=== PATIENT | female | born 1980 | race Caucasian/White ===

== ENCOUNTER 2024-02-27 05:35 | Emergency (ER) | payer OTHER ==
[2024-02-27 05:50] VITALS: BP 117/79; PULSE 86; RESP 20; TEMP 98.7; BMI 30.9
[2024-02-27] MEDS ORDERED: ACETAMINOPHEN 325 MG TABLET (FP) ONE (08:08)
[2024-02-27] MEDS ORDERED: MECLIZINE HCL 25 MG TABLET (FP) ONE (08:08)
[2024-02-27] MEDS ORDERED: METOCLOPRAMIDE HCL INJECTION 10 MG/2 ML VIAL ONE (08:08)
[2024-02-27] MEDS: MECLIZINE HCL 25 MG TABLET (FP) PO ONE (08:22)
[2024-02-27] MEDS: METOCLOPRAMIDE HCL INJECTION 10 MG/2 ML VIAL IVPUSH ONE (08:22)
[2024-02-27] MEDS: SODIUM CHLORIDE 0.9% 500 ML INFUS.BAG IV ONE (08:22)
[2024-02-27] MEDS: ACETAMINOPHEN 325 MG TABLET (FP) PO ONE (08:22)
[2024-02-27 08:35] LABS: BASO % 0.6 % (0-2.0); EOS % 2.1 % (0-4.5); HEMATOCRIT 40.7 % (32.4-45.2); HEMOGLOBIN 13.7 GM/dL (10.7-15.3); LYMPH % 26.8 % (8-40); MCH 29.7 pg (25.7-33.7); MCHC 33.8 g/dl (32.0-36.0); MEAN PLT VOLUME 9.8 fl (7.5-11.1); MONO % 6.8 % (3.8-10.2); NEUT % 63.7 % (42.8-82.8); PLATELET COUNT 216 10^3/uL (134-434); RBC 4.62 M/mm3 (3.60-5.2); RDW 12.9 % (11.6-15.6); WHITE BLOOD COUNT 7.5 K/mm3 (4.0-10.0)
[2024-02-27 08:58] LABS: POTASSIUM 4.4 mmol/L (3.5-5.1)
[2024-02-27 08:59] LABS: CALCIUM 8.9 mg/dL (8.5-10.1)
[2024-02-27 09:00] LABS: ALBUMIN 3.7 g/dl (3.4-5.0); BLOOD UREA NITROGEN 16.1 mg/dL (7-18); MAGNESIUM 2.2 mg/dL (1.8-2.4)
[2024-02-27 09:03] LABS: CREATININE 0.7 mg/dL (0.55-1.3)
[2024-02-27 09:05] LABS: BILIRUBIN,TOTAL 0.2 mg/dL (0.2-1); TOT PROT 7.3 g/dl (6.4-8.2)
== END 2024-02-27 10:28 | disposition home or self-care (01) ==
LOC: JER 05:35
PROC: 3E030GC Introduction of Other Therapeutic Substance into Peripheral Vein, Open Approach (ICD-10-PCS; principal; 2024-02-27)
DX: R42 Dizziness and giddiness (principal); R51.9 Headache, unspecified; R11.0 Nausea
CPT/HCPCS: 36415; 70450-TC; 80053; 83735; 84703; 85025; 93005; 93010; 99285-25